=== PATIENT | male | born 1965 | race Caucasian/White ===

== ENCOUNTER 2023-08-02 08:02 | Emergency (ER) | payer MEDICAID ==
[~2023-08-02] VITALS: Ht 177.8 cm; Wt 156.4 kg
[~2023-08-02 08:02] MED LIST: ASPI-1071 PO; LISI40TA13 PO; SIMV-42 PO
[2023-08-02 08:22] VITALS: BP 179/104; PULSE 119; RESP 22; TEMP 98.7; O2SAT 94
[2023-08-02] MEDS ORDERED: AMOX-580 PO (10:00)
== END 2023-08-02 10:48 | disposition home or self-care (01) ==
LOC: ER 08:03
DX: S02.32XA Fracture of orbital floor, left side, initial encounter for closed fracture (principal); W01.0XXA Fall on same level from slipping, tripping and stumbling without subsequent striking against object, initial encounter; Y93.89 Activity, other specified; Y92.89 Other specified places as the place of occurrence of the external cause; Y99.8 Other external cause status
CPT/HCPCS: 70450; 70486; 72125; 99284

== ENCOUNTER 2023-12-14 07:37 | Emergency (ER) | payer MEDICAID ==
[~2023-12-14] VITALS: Ht 177.8 cm; Wt 145.7 kg
[2023-12-14] MEDS ORDERED: HYDR-3965 PO (10:08)
[2023-12-14] MEDS: TETanus/Pertussis (Acell)/Diphther VAC/PF (Tdap-Adult) 0.5ml syringe IMVAC ONE (10:39)
[2023-12-14 10:50] VITALS: BP 157/82; PULSE 84; RESP 14; TEMP 98; O2SAT 96
== END 2023-12-14 11:04 | disposition home or self-care (01) ==
LOC: ER 07:38
DX: S61.411A Laceration without foreign body of right hand, initial encounter (principal); X58.XXXA Exposure to other specified factors, initial encounter; Y93.89 Activity, other specified; Y92.89 Other specified places as the place of occurrence of the external cause; Y99.8 Other external cause status
CPT/HCPCS: 12001; 90471; 90715; 99284; A6258; A6449